=== PATIENT | male | born 1980 | race Two or more races ===

== ENCOUNTER 2023-07-08 16:05 | Emergency (ER) | payer OTHER ==
[~2023-07-08] VITALS: Ht 185.4 cm; Wt 142.5 kg
[2023-07-08 16:18] VITALS: BP 166/96; PULSE 89; RESP 20; TEMP 97.8; O2SAT 96
== END 2023-07-08 17:00 | disposition left against medical advice (07) ==
LOC: MED 16:05
DX: S61.451A Open bite of right hand, initial encounter (principal); Z53.21 Procedure and treatment not carried out due to patient leaving prior to being seen by health care provider; W55.01XA Bitten by cat, initial encounter; Y93.89 Activity, other specified; Y92.89 Other specified places as the place of occurrence of the external cause; Y99.8 Other external cause status
CPT/HCPCS: 99281

== ENCOUNTER 2023-07-08 18:08 | Emergency (ER) | payer OTHER ==
[~2023-07-08] VITALS: Ht 185.4 cm; Wt 142.4 kg
[2023-07-08 18:42] VITALS: BP 174/111; PULSE 92; RESP 20; TEMP 97.7; O2SAT 96
[2023-07-08 19:41] VITALS: BP 144/92; PULSE 78; RESP 16; TEMP 97.7; O2SAT 96
== END 2023-07-08 19:41 | disposition home or self-care (01) ==
LOC: MED 18:08
DX: S61.451A Open bite of right hand, initial encounter (principal); W55.01XA Bitten by cat, initial encounter; Y93.89 Activity, other specified; Y92.89 Other specified places as the place of occurrence of the external cause; Y99.8 Other external cause status
CPT/HCPCS: 99281